=== PATIENT | male | born 1970 | race Caucasian/White ===

== ENCOUNTER → 2017-12-31 | Outpatient (CLI) | payer OTHER ==
--- NOTE | 2017-12-31 13:47 | CPEEG ---
4-HOUR VIDEO EEG DATE OF STUDY: 12/31/2017 INTERPRETATION: This 4-hour video EEG recording is normal. There were no potentially epileptogenic abnormalities present in the awake or sleep recording spread. During the video EEG monitoring mona rosales, the patient did not have any clinical events. REPORT: This 4-hour video EEG contains 10 Hz alpha activity over the posterior head regions. There was no abnormal activation at rest, during photic stimulation, or hyperventilation. The patient kurt me drowsy and fell asleep during the study. There was no abnormal activation during drowsiness, slee p, or during times of arousal. The patient did not have any clinical events during the [facility]. /[id number]/MODL
== END ==
LOC: FCPNEURO 07:50
PROVIDERS: ATTEND Psychiatry & Neurology Neurology
DX: G40.209 Localization-related (focal) (partial) symptomatic epilepsy and epileptic syndromes with complex partial seizures, not intractable, without status epilepticus (principal)

== ENCOUNTER → 2018-07-29 | Outpatient (CLI) | payer OTHER | LOC: EMCIMAGING 15:07 | PROVIDERS: ATTEND Psychiatry & Neurology Neurology | DX: G40.209 Localization-related (focal) (partial) symptomatic epilepsy and epileptic syndromes with complex partial seizures, not intractable, without status epilepticus (principal); Z82.49 Family history of ischemic heart disease and other diseases of the circulatory system | CPT/HCPCS: 70450-PN; 70496-PN ==